=== PATIENT | female | born 1950 | race Caucasian/White ===

== ENCOUNTER 2017-10-07 12:00 | Inpatient (IN) | payer MEDICARE, BC ==
[2017-10-07 12:38] VITALS: BMI 21.4
[2017-10-21] MEDS ORDERED: CEFAZOLIN/Water 2 GM/20 ML SYRINGE ONE (06:19)
[2017-10-21] MEDS ORDERED: Tranexamic Acid 1,000 MG/100 ML BAG ONE ×2 (06:19→08:57)
[2017-10-21] MEDS ORDERED: Levofloxacin 500 mg/D5W 100 ml Premix Bag ONE (06:25)
[2017-10-21] MEDS ORDERED: Clindamycin/D5W 900 mg/50 ml Premix Bag ONE (06:25)
[2017-10-21] MEDS ORDERED: Fentanyl 100 MCG/2 ML VIAL ONE (06:30)
[2017-10-21] MEDS ORDERED: Midazolam HCl 2 mg/2 ml Vial ONE (06:30)
[2017-10-21] MEDS ORDERED: Bupivacaine 0.25% HCL 30 ML VIAL ONE (06:56)
[2017-10-21] MEDS ORDERED: Fentanyl 100 MCG/2 ML VIAL SLOW IVP PRN ×2 (06:57)
[2017-10-21] MEDS ORDERED: Acetaminophen 325 MG TAB PO PRN (06:57)
[2017-10-21] MEDS ORDERED: Promethazine HCl 25 MG/ML VIAL IM PRN ×3 (06:57→08:53)
[2017-10-21] MEDS ORDERED: traMADol HCl 50 MG TAB PO PRN ×2 (06:57→07:00)
[2017-10-21] MEDS ORDERED: HYDROcodone/Acetaminophen 10/325 mg Tablet PO PRN ×2 (06:57)
[2017-10-21] MEDS ORDERED: diphenhydrAMINE 25 MG CAP PO PRN (06:57)
[2017-10-21] MEDS ORDERED: Ondansetron HCl/PF 4 MG/2 ML Vial IVP PRN ×3 (06:57→08:53)
[2017-10-21] MEDS ORDERED: Zolpidem Tartrate 5 MG TAB PO PRN ×2 (06:57→07:00)
[2017-10-21] MEDS ORDERED: diphenhydrAMINE 50 MG/ML VIAL IVP PRN (07:00)
[2017-10-21] MEDS ORDERED: diphenhydrAMINE 50 MG/ML VIAL IM PRN (07:00)
[2017-10-21] MEDS ORDERED: Tranexamic Acid 1,000 MG in Sodium Chloride 0.9% 100 ML IVPB SCH (07:00)
[2017-10-21] MEDS ORDERED: Bupivacaine 0.25% 10 ML VIAL EPIDURAL PRN (07:00)
[2017-10-21] MEDS ORDERED: Naloxone HCl 0.4 mg/ml Vial IVP PRN (07:00)
[2017-10-21] MEDS ORDERED: Eucerin (Mineral Oil/Petrolatum,White) 30 gm Jar TOP PRN (07:00)
[2017-10-21] MEDS ORDERED: HYDROcodone/Acetaminophen 5/325 mg Tablet PO PRN ×2 (07:00)
[2017-10-21] MEDS ORDERED: Fentanyl/Bupivacaine 250 ML in Premix Bag 1 BAG EPIDURAL SCH (07:00)
[2017-10-21] MEDS ORDERED: Promethazine HCl 25 MG SUPP PR PRN (07:00)
[2017-10-21] MEDS ORDERED: Naloxone HCl 0.4 mg/ml Vial IV PRN (07:00)
[2017-10-21] MEDS ORDERED: Alendronate Sodium 70 mg Tablet PO SCH (07:00)
[2017-10-21] MEDS ORDERED: HYDROmorphone 2 MG/ML VIAL SLOW IVP PRN (08:53)
[2017-10-21] MEDS ORDERED: Promethazine HCl 25 MG/ML VIAL SLOW IVP PRN (08:53)
[2017-10-21] MEDS ORDERED: Fentanyl/Bupivacaine 250 ML EPIDURAL ONE (09:04)
--- NOTE | 2017-10-21 09:21 | OP ---
DATE OF PROCEDURE: 10/21/2017 PREOPERATIVE DIAGNOSIS: End-stage bicompartmental osteoarthritis, right hip. POSTOPERATIVE DIAGNOSIS: End-stage bicompartmental osteoarthritis, right hip. PROCEDURE: Press-Fit right total hip arthroplasty. SURGEON: Ron Wright M.D. AIRCRAFT PART ASSEMBLER: Ward Arias PA-C. ANESTHESIA: General via endotracheal tube augmented with indwelling epidural. COMPONENTS USED: [employer] Trident PSL press-fit cluster acetabular shell 46 mm diameter w ith a 0 degree polyethylene fixed bearing insert. Accolade press-fit size 3.5 hip stem and a Biolox ceramic femoral head 36 mm with a +2.5 neck length. ESTIMATED BLOOD LOSS: 200 mL. DRAINS: None. SPECIMENS: None. COMPLICATIONS: None. COUNTS: One 10 blade unaccounted for. Plain radiographs obtained postoperatively yielded a negative result but good implant, fixation and p ositioning, also x-rays were obtained of all drapes. INDICATIONS FOR SURGERY: Ines is a 66-year-old white female who has had progressive right-sided hip , groin, and thigh pain amplified with standing and walking for the last 5-7 years. She has failed c onservative management and elected to proceed with total hip arthroplasty to treat her pain. PROCEDURE IN DETAIL: After informed consent was obtained in the preoperative holding area, the patie nt was taken to the operative suite where general anesthesia was induced. The patient was then posit ioned in the lateral decubitus position. The hip was then prepped and draped in usual sterile fashio n. The patient received preoperative antibiotics. Prior to incision, time-out was called and all me mbers of the surgical team agreed upon site, surgeon, and patient. After this, a longitudinal incisi on was made directly over the trochanter, noted by palpation extending 2 fingerbreadths above and bel ow the trochanter. The deeper subcutaneous layer was undermined with Bovie electrocautery. The ilio tibial band was encountered and incised sharply and the plane below this was developed bluntly. A kala retractor was placed to hold this opened. The lateral aspect of the trochanter and the abduct or muscles were encountered and then reflected anteriorly off the trochanter using Bovie electrocaute ry. Once this was completed, the anterior capsule was then encountered and identified and copious ca psulotomy was carried out, exposing the femoral neck and head. Dislocation maneuver was then performe d and an in situ provisional neck cut was then made using the oscillating saw. Attention was then tu rned to acetabular preparation and sequential reaming was carried out up to the appropriate diameter and a trial was then malleted into place with good firm resistance and no pullout. The permanent walker tabular shell was then malleted squarely into place, as was the appropriate liner. Once completed, t he wound was copiously irrigated and attention was then turned to femoral preparation. Flexion and ex ternal rotation was performed of the exposed thigh and femoral elevators were then placed at the prox imal aspect of the wound. Canal finder was used to establish the length of the canal and sequential reaming was carried out, followed by broaching. Once the appropriate stability was established with the trial broaches with both flexion, extension and rotational stability, we did trial with neutral a nd 2 mm offset incremental necks. Once the appropriate size was decided upon, with good stability no zenaida with flexion, extension, internal and external rotation and shuck being negative, we removed the femoral trial broach and malletted into place the permanent prosthesis with good firm fit, which was also stable to rotation. Again, the hip felt very stable to flexion, extension, internal and externa l rotation. Leg lengths appeared near anatomic clinically and we were quite happy with prosthesis pl acement. Copious irrigation was then carried out through the entirety of the wound. Primary closure of the abductors was accomplished with interrupted #2 Vicryl [id number] stitches and the IT ban d was then closed with interrupted #2 Vicryl, oversewn with a #2 running barbed Quill stitch. Subcut aneous fascia was closed with running barbed Quill stitch and a subcuticular Monocryl barbed Quill st itch was used for skin closure and augmented with skin cement. A sterile dressing was applied. The p rocedure was terminated without any complication. All counts were correct. The patient was awakened in the operative suite and taken to the recovery room in stable condition.
--- NOTE | 2017-10-21 09:26 | RAD ---
RIGHT HIP ONE VIEW: History: Post op. FINDINGS: Satisfactory appearance right hip arthroplasty. No hardware complication: IMPRESSION: Satisfactory appearance right hip arthroplasty. POS: [facility]
--- NOTE | 2017-10-21 10:47 | RAD ---
RIGHT HIP TWO VIEWS: History: Right hip replacement. Evaluate for foreign body. FINDINGS: Right hip prosthesis is in place. Soft tissue gas is demonstrated. No other metallic foreign bodies are visible. POS: [facility]
[2017-10-21] MEDS: Sodium Chloride 0.9% 1,000 ML IV SCH ×3 (10:54→20:32)
[2017-10-21] MEDS: Senokot S 8.6-50 MG TAB PO SCH ×2 (10:55→20:30)
[2017-10-21] MEDS: Lisinopril 10 MG TAB PO SCH (10:55)
[2017-10-21] MEDS: Azelastine 137 MCG/Spray 30 ML NS SCH (10:55)
[2017-10-21] MEDS: Multivitamin W/ Minerals 1 TAB PO SCH (10:55)
[2017-10-21] MEDS: Ferrous Gluconate 324 MG TAB PO SCH ×2 (10:55→20:29)
[2017-10-21] MEDS: Calcium Citrate 950 MG TAB PO SCH ×3 (10:55→23:03)
[2017-10-21] MEDS ORDERED: Prevnar 13-Val Conj/PF 0.5 ML SYRINGE IM ONE (12:00)
[2017-10-21] MEDS ORDERED: Dexamethasone 20 MG/5 ML VIAL ONE (14:40)
[2017-10-21] MEDS ORDERED: Ketorolac Tromethamine 30 MG/ML VIAL ONE (14:40)
[2017-10-21] MEDS ORDERED: PHENYLEPHRINE-NS 100 MCG/ML 10 ML SYRINGE ONE (14:40)
[2017-10-21] MEDS ORDERED: Ondansetron HCl/PF 4 MG/2 ML Vial ONE (14:40)
[2017-10-21] MEDS ORDERED: ePHEDrine/0.9% NaCl/PF SYRINGE 50 mg/10 ml ONE (14:40)
[2017-10-21] MEDS ORDERED: Lidocaine 1% PF 5 ML VIAL ONE (14:40)
[2017-10-21] MEDS ORDERED: Propofol 200 MG/20 ML VIAL ONE (14:40)
--- NOTE | 2017-10-21 14:45 | HP ---
PRIMARY CARE PROVIDER: Dr. Nehemias Andrea. CONSULT: [facility] for postoperative care and medical management. The patient is status post right total hip replacement. She has had some mild chills, but no hard sh aking chills, no sweats, no fever since surgery. She has had no chest pain, shortness of breath or n ausea. PAST MEDICAL HISTORY: Hypertension, osteoarthritis, osteoporosis. CURRENT MEDICATIONS: Lisinopril 10 mg a day, alendronate 70 mg p.o. weekly, Flonase nasal spray p.r. n. azelastine nasal spray 2 sprays each nostril in the morning p.r.n. ALLERGIES: AMOXICILLIN, causes hives. PAST SURGICAL HISTORY: Appendectomy 18 months ago in this hospital, ureteroscopy for renal stones. FAMILY HISTORY: Father committed suicide. Mother at 82 of COPD. She was a smoker. She is an only child. SOCIAL HISTORY: , full code status. next of kin at bedside. Tobacco negative. [place], very occasional wine and beer. REVIEW OF SYSTEMS: GENERAL: No headaches, dizziness or fainting. EYES: No double vision, blurred vision, flashing lights. ENT: No ear pain or drainage. No nasal bleeding. No trouble swallowing. CARDIAC: No chest pain, orthopnea or paroxysmal nocturnal dyspnea. RESPIRATORY: No cough, wheezing or asthma. GASTROINTESTINAL: No nausea, vomiting, diarrhea or constipation. No abdominal pain. GENITOURINARY: No hematuria or dysuria. MUSCULOSKELETAL: She has some diffuse joint aches and pains. No hot swollen joints. She has no mus jessica pains. No swelling in arms or legs. NEUROLOGIC: No strokes, seizures or focal weakness. PSYCHIATRIC: No anxiety or depression issues. SKIN: No bruising, bleeding, or rash. HEME/LYMPH: No tender or swollen lymph nodes in axilla, inguinal or cervical area. PHYSICAL EXAMINATION: GENERAL: She is an alert, pleasant, cooperative lady. VITAL SIGNS: Temperature 96.8, pulse 83, respirations 16, O2 sat 97%, blood pressure 106/68. HEENT: Reveal pupils equal, round, and reactive to light. Extraocular movements are intact. Sclera e white. Tympanic membranes clear. Nose clear. Oral mucous membranes are wet. Dental hygiene is g ood. NECK: Supple without jugular venous distention, adenopathy or thyromegaly. CHEST: Clear to auscultation and percussion. HEART: Regular rate and rhythm. First and second heart sounds are clear. There are no appreciated murmurs or gallops. ABDOMEN: Soft, bowel sounds are normal. There is no hepatosplenomegaly, no mass, no rebound, no bru its. EXTREMITIES: Reveal no cyanosis, clubbing or edema. There is a bandage on the right hip. She has i ndwelling [place] catheter. PULSES: Carotid, radial, femoral, and dorsalis pedis pulses intact. SKIN: Warm and dry without bruises or rash. HEME/LYMPH: Reveals no tender or swollen lymph nodes in axilla, inguinal or cervical area. NEUROLOGICAL: Cranial nerves II-XII are intact. Moves all extremities. Sensation is intact. EKG: Regular sinus rhythm within normal limits, reviewed by me. Chest x-ray shows no cardiomegaly, CHF or infiltrate, reviewed by me. LABORATORY: Done on 10/14/2017. CBC within normal limits. INR 1.0. Basic metabolic profile normal except for a BUN of 22. Urine is clear. ADMITTING DIAGNOSES: 1. Postoperative status. 2. Hypertension. 3. Osteoporosis. 4. Osteoarthritis. PLAN: 1. Thank you for the consult. We will follow with you. 2. Continue selected home medicines.
[2017-10-21] MEDS: diphenhydrAMINE 25 MG CAP PO PRN ×2 (15:45→18:41)
[2017-10-21] MEDS ORDERED: Vancomycin HCl 1 GM in Premix Bag 1 BAG IVPB SCH (18:00)
[2017-10-21] MEDS: Fluticasone Propionate Nasal Spray 16 gm Bottle NASAL SCH (20:43)
[2017-10-21] MEDS: Ketorolac Tromethamine 30 MG/ML VIAL IVP PRN (23:09)
[2017-10-21] MEDS: traMADol HCl 50 MG TAB PO PRN (23:14)
[2017-10-22] MEDS: traMADol HCl 50 MG TAB PO PRN ×2 (04:42→15:14)
[2017-10-22] MEDS: Ketorolac Tromethamine 30 MG/ML VIAL IVP PRN (06:13)
[2017-10-22 06:24] LABS: Hemoglobin 10.4 g/dL (12.0-16.0); Mean Corpuscular HGB CONC 33.6 g/dL (32.0-36.0); Mean Corpuscular Hemoglobin 31.7 pg (27.0-31.0); Mean Corpuscular Volume 94.5 fl (81.0-99.0); Mean Platelet Volume 7.1 fL (7.4-10.4); Platelet Count 192 thou/uL (130-400); RBC Distribution Width 10.7 % (11.5-14.5); Red Blood Cell (RBC) Count 3.27 mill/uL (4.20-5.40); White Blood Cell (WBC) Count 6.8 thou/uL (4.8-10.8)
[2017-10-22] MEDS: Lisinopril 10 MG TAB PO SCH (09:43)
[2017-10-22] MEDS: Senokot S 8.6-50 MG TAB PO SCH ×2 (09:43→20:15)
[2017-10-22] MEDS: Ferrous Gluconate 324 MG TAB PO SCH ×2 (09:43→20:15)
[2017-10-22] MEDS: Multivitamin W/ Minerals 1 TAB PO SCH (09:43)
[2017-10-22] MEDS: Calcium Citrate 950 MG TAB PO SCH ×3 (09:44→20:15)
[2017-10-22] MEDS: Azelastine 137 MCG/Spray 30 ML NS SCH (09:44)
[2017-10-22] MEDS ORDERED: HYDROcodone/Acetaminophen 10/325 mg Tablet PO PRN (11:22)
[2017-10-22] MEDS: Sodium Chloride 0.9% 1,000 ML IV SCH ×2 (12:15→23:44)
[2017-10-22] MEDS: HYDROcodone/Acetaminophen 10/325 mg Tablet PO PRN ×2 (13:50→20:19)
--- NOTE | 2017-10-22 16:32 | PDOC.PN ---
- Subjective Encounter Start Date: 10/22/17 Encounter Start Time: 16:30 Subjective: alert, still having significant surgical site pain - Objective MAR Reviewed: Yes Vital Signs & Weight: Vital Signs (12 hours) Temp Pulse Resp BP Pulse Ox 10/22/17 16:00 98.3 F 87 12 111/72 100 10/22/17 13:29 97.4 F L 101 H 16 107/70 97 10/22/17 08:00 99.2 F 101 H 14 118/77 97 10/22/17 04:56 98.7 F 98 16 113/73 98 Weight Admit Weight 125 lb Weight 125 lb I&O: 10/21/17 10/22/17 10/23/17 06:59 06:59 06:59 Intake Total 2934 Output Total 1750 Balance 1184 Result Diagrams: 10/22/17 05:56 Phys Exam - Physical Examination Constitutional: NAD Neck: no JVD Respiratory: clear to auscultation bilateral Cardiovascular: RRR, no significant murmur Gastrointestinal: soft, non-tender, positive bowel sounds Musculoskeletal: no edema Dx/Plan (1) Post-op pain Code(s): G89.18 - OTHER ACUTE POSTPROCEDURAL PAIN Status: Acute (2) HTN (hypertension) Code(s): I10 - ESSENTIAL (PRIMARY) HYPERTENSION Status: Chronic (3) Osteoarthritis Code(s): M19.90 - UNSPECIFIED OSTEOARTHRITIS, UNSPECIFIED SITE Status: Chronic Qualifiers: Osteoarthritis location: unspecified site (4) Osteoporosis Code(s): M81.0 - AGE-RELATED OSTEOPOROSIS W/O CURRENT PATHOLOGICAL FRACTURE Status: Acute Qualifiers: Osteoporosis type: unspecified Presence of current pathological fracture: unspecified Qualified Code(s): M81.0 - Age-related osteoporosis without current pathological fracture - Plan adjusting anagesia -: OW doing well, cont home meds * .
[2017-10-22] MEDS: Fluticasone Propionate Nasal Spray 16 gm Bottle NASAL SCH (23:44)
[2017-10-23] MEDS: HYDROcodone/Acetaminophen 10/325 mg Tablet PO PRN ×2 (05:25→10:12)
[2017-10-23] MEDS: Ketorolac Tromethamine 30 MG/ML VIAL IVP PRN (05:57)
[2017-10-23 06:09] LABS: Hemoglobin 10.9 g/dL (12.0-16.0); Mean Corpuscular HGB CONC 32.4 g/dL (32.0-36.0); Mean Corpuscular Hemoglobin 31.1 pg (27.0-31.0); Mean Corpuscular Volume 95.8 fl (81.0-99.0); Mean Platelet Volume 7.3 fL (7.4-10.4); Platelet Count 207 thou/uL (130-400); White Blood Cell (WBC) Count 6.9 thou/uL (4.8-10.8)
[2017-10-23] MEDS: Multivitamin W/ Minerals 1 TAB PO SCH (10:13)
[2017-10-23] MEDS: Senokot S 8.6-50 MG TAB PO SCH (10:13)
[2017-10-23] MEDS: Ferrous Gluconate 324 MG TAB PO SCH (10:14)
[2017-10-23] MEDS: Calcium Citrate 950 MG TAB PO SCH (10:14)
[2017-10-23] MEDS: Lisinopril 10 MG TAB PO SCH (10:14)
[2017-10-23] MEDS: Azelastine 137 MCG/Spray 30 ML NS SCH (12:06)
[2017-10-23 14:06] VITALS: BP 106/58; TEMP 97.6
--- NOTE | 2017-10-24 14:27 | DIS ---
DATE OF ADMISSION: 10/21/2017 DATE OF DISCHARGE: 10/23/2017 DISCHARGE DISPOSITION: To home. ADMISSION DIAGNOSIS: End-stage bicompartmental osteoarthritis, right hip. DISCHARGE DIAGNOSIS: End-stage bicompartmental osteoarthritis, right hip. OPERATIVE PROCEDURE: Right total hip arthroplasty. CONSULTANTS: [facility] for acute postop pain management and [facility] fo r medical management erythema. BRIEF CLINICAL HISTORY: The patient was admitted to [facility] and underwent the above elective procedure on the date of admission without intra, macy, or postoperative complicat ion. The hospital course was unremarkable. At the time of discharge, the patient is afebrile, ambul atory without assistance utilizing a rolling walker in a full weightbearing fashion, tolerating a reg ular diet, and voiding without difficulty. The patient's incision is clean and closed without any er ythema. DISCHARGE MEDICATIONS: Please see medication reconciliation form. We will be happy to see the patient on an as needed basis between now and her next scheduled appointm ent. CONDITION ON DISCHARGE: Stable. PROGNOSIS: Good.
== END 2017-10-23 13:55 | disposition home or self-care (01) | DRG 470 ==
LOC: SJJU 10-21 05:24
PROVIDERS: ADMIT Orthopaedic Surgery; ATTEND Orthopaedic Surgery
PROC: 0SR904A Replacement of Right Hip Joint with Ceramic on Polyethylene Synthetic Substitute, Uncemented, Open Approach (ICD-10-PCS; principal; 2017-10-21)
PROC: 3E0T3BZ Introduction of Anesthetic Agent into Peripheral Nerves and Plexi, Percutaneous Approach (ICD-10-PCS; 2017-10-21)
DX: M16.11 Unilateral primary osteoarthritis, right hip (principal); G89.18 Other acute postprocedural pain; I10 Essential (primary) hypertension; M81.0 Age-related osteoporosis without current pathological fracture; Z88.1 Allergy status to other antibiotic agents
CPT/HCPCS: 36415; 85027; G8978-GP-CK; G8979-GP-CJ; G8987-GO-CJ; G8988-GO-CI; J1100; J1885; J1956; J2001; J2250; J2405; J2704; J3010; J3370; J3490; S0020

== ENCOUNTER 2017-10-14 08:17 | Outpatient (CLI) | payer MEDICARE, BC ==
[2017-10-14 08:54] LABS: #Basophils 0.1 thou/uL (0.0-0.2); #Eosinphils 0.2 thou/uL (0.0-0.7); #Monocytes 0.6 thou/uL (0.11-0.59); #Neutrophils 2.8 thou/uL (1.40-6.50); %Basophils 1.4 % (0.0-1.0); %Eosinophils 4.1 % (0.0-10.0); %Lymphocytes 35.4 % (21.0-51.0); %Monocytes 9.9 % (0.0-10.0); %Neutrophils 49.4 % (42.0-75.0); Hemoglobin 15.1 g/dL (12.0-16.0); Mean Corpuscular HGB CONC 31.9 g/dL (32.0-36.0); Mean Corpuscular Hemoglobin 30.2 pg (27.0-31.0); Mean Corpuscular Volume 94.5 fl (81.0-99.0); Mean Platelet Volume 7.2 fL (7.4-10.4); Platelet Count 293 thou/uL (130-400); RBC Distribution Width 10.6 % (11.5-14.5); White Blood Cell (WBC) Count 5.8 thou/uL (4.8-10.8)
[2017-10-14 09:02] LABS: PTT 31.3 SEC (22.9-36.1); Prothrombin Time 12.8 SEC (12.0-14.7)
[2017-10-14 09:05] LABS: Bilirubin Negative (Negative); Blood, Urine Negative (Negative); Clarity CLEAR (Clear); Glucose, Urine (Dipstick) Negative (Negative); Leukocyte Negative (Negative); Nitrite Negative (Negative); Protein, Urine (Dipstick) Negative (Neg-Trace); Specific Gravity, Urine 1.014 (1.002-1.036); Urobilinogen 0.2 mg/dL (0.2-1.0); pH, Urine 6.5 (5.0-9.0)
[2017-10-14 09:07] LABS: Bacteria/HPF None Seen HPF (None Seen); Hyaline Casts/LPF 0-3 HYALINE CAST LPF (0-3 Hyaline); Pathc Cast-AUWi Flag 0.27 (0-2.49); RBC/HPF 0-3 HPF (0-3); Squamous Epithelial None Seen HPF (0-3); WBC/HPF 0-3 HPF (0-3)
[2017-10-14 09:12] LABS: Anion Gap 13 mmol/L (10-20); BUN (Urea Nitrogen) 22 mg/dL (9.8-20.1); Calc. Creatinine Clearance 0 mL/min (70-130); Calcium 10.3 mg/dL (7.8-10.44); Carbon Dioxide 27 mmol/L (23-31); Chloride 100 mmol/L (98-107); Estimated GFR-MDRD 61; Glucose 84 mg/dL (80-115); Potassium 4.3 mmol/L (3.5-5.1); Sodium 136 mmol/L (136-145)
--- NOTE | 2017-10-14 09:47 | RAD ---
TWO VIEWS CHEST: Date: 10-14-17 Comparison: None. History: Pre-operative patient. FINDINGS: No pneumothorax, pleural fluid, focal consolidation or alveolar edema. There is a mild degree of roto scoliosis at the upper lumbar spine, apex to the right. IMPRESSION: No acute findings. POS: [facility]
--- NOTE | 2017-10-14 23:42 | EKG ---
Test Reason : Blood Pressure : / mmHG Vent. Rate : 079 BPM Atrial Rate : 079 BPM P-R Int : 162 ms QRS Dur : 072 ms QT Int : 366 ms P-R-T Axes : 076 072 064 degrees QTc Int : 419 ms Normal sinus rhythm Normal ECG When compared with ECG of 01-AUG-2016 20:46, No significant change was found Confirmed by Sherrell ORR ([id number]) on 10/14/2017 11:42:13 PM Referred By: CLARENCE Confirmed By:Sherrell ORR
== END 2017-10-14 08:18 | disposition home or self-care (01) ==
LOC: LABBT 08:17
PROVIDERS: ATTEND Orthopaedic Surgery
DX: Z01.812 Encounter for preprocedural laboratory examination (principal); Z01.810 Encounter for preprocedural cardiovascular examination; Z01.818 Encounter for other preprocedural examination; M16.11 Unilateral primary osteoarthritis, right hip; Z88.1 Allergy status to other antibiotic agents
CPT/HCPCS: 71046; 80048; 81001; 85025; 85610; 85730; 86850; 86900; 86901; 87081; 93005; 93010

== ENCOUNTER 2018-11-18 10:58 | Emergency (ER) | payer MEDICARE, BC ==
[2018-11-18] MEDS ORDERED: Promethazine HCl 25 MG/ML VIAL ONE (11:12)
[2018-11-18] MEDS ORDERED: Meclizine HCl 25 MG TAB ONE (11:31)
[2018-11-18 12:08] LABS: #Lymphocytes 0.9 thou/uL (1.20-3.40); #Monocytes 0.4 thou/uL (0.11-0.59); #Neutrophils 3.7 thou/uL (1.40-6.50); %Basophils 0.7 % (0.0-1.0); %Eosinophils 0.9 % (0.0-10.0); %Lymphocytes 18.5 % (21.0-51.0); %Monocytes 7.1 % (0.0-10.0); %Neutrophils 72.8 % (42.0-75.0); Hemoglobin 14.3 g/dL (12.0-16.0); Mean Corpuscular Hemoglobin 32.1 pg (27.0-31.0); Mean Corpuscular Volume 97.2 fL (78.0-98.0); Mean Platelet Volume 7.4 fL (7.4-10.4); Platelet Count 231 thou/uL (130-400); RBC Distribution Width 10.6 % (11.5-14.5); Red Blood Cell (RBC) Count 4.47 mill/uL (4.20-5.40); White Blood Cell (WBC) Count 5.1 thou/uL (4.8-10.8)
[2018-11-18] MEDS ORDERED: Metoclopramide HCl 10 MG/2 ML VIAL ONE (12:12)
[2018-11-18] MEDS ORDERED: diphenhydrAMINE 50 MG/ML VIAL ONE (12:12)
[2018-11-18 12:33] LABS: ALT (SGPT) 23 U/L (8-55); AST (SGOT) 24 U/L (5-34); Albumin 3.5 g/dL (3.4-4.8); Alkaline Phosphatase 50 U/L (40-150); Anion Gap 8 mmol/L (10-20); BUN (Urea Nitrogen) 17 mg/dL (9.8-20.1); Bilirubin, Total 0.4 mg/dL (0.2-1.2); Calc. Creatinine Clearance 0 mL/min (70-130); Calcium 8.9 mg/dL (7.8-10.44); Carbon Dioxide 27 mmol/L (23-31); Chloride 106 mmol/L (98-107); Estimated GFR-MDRD 71; Globulin 2.2 g/dL (2.4-3.5); Glucose 108 mg/dL (80-115); Potassium 4.2 mmol/L (3.5-5.1); Protein, Total 5.7 g/dL (6.0-8.3); Sodium 137 mmol/L (136-145)
--- NOTE | 2018-11-18 12:58 | CT ---
NONCONTRAST CT HEAD: Date: 11-18-18 History: Dizziness, nausea, vomiting. Comparison: None available. FINDINGS: There is no evidence of a hemorrhage, acute infarction, mass effect, or midline shift. Mild cerebral volume loss is present. Minimal mucosal thickening is seen ethmoidal air cells. Mastoid air cells are opacified on the right. IMPRESSION: 1. No acute intracranial abnormalities demonstrated. 2. Mild cerebral volume loss. 3. Right mastoid effusion with opacification of the right sided mastoid air cells. There is no opacif ication of the middle ear cavity. POS: [facility]
== END 2018-11-18 13:25 | disposition home or self-care (01) ==
LOC: ERS 10:58
DX: J32.9 Chronic sinusitis, unspecified (principal); H81.399 Other peripheral vertigo, unspecified ear
CPT/HCPCS: 36415; 70450; 80053; 85025; 93005; 96365; 96367; 96375; J1200; J2550; J2765

== ENCOUNTER 2018-11-24 08:28 | Emergency (ER) | payer MEDICARE, BC ==
[2018-11-24] MEDS ORDERED: Diazepam 5 MG TAB ONE (09:08)
[2018-11-24 09:35] LABS: #Basophils 0.1 thou/uL (0.0-0.2); #Eosinphils 0.1 thou/uL (0.0-0.7); #Monocytes 0.7 thou/uL (0.11-0.59); #Neutrophils 4.1 thou/uL (1.40-6.50); %Basophils 1.1 % (0.0-1.0); %Eosinophils 1.7 % (0.0-10.0); %Lymphocytes 28.4 % (21.0-51.0); %Monocytes 9.6 % (0.0-10.0); %Neutrophils 59.2 % (42.0-75.0); Hemoglobin 15.9 g/dL (12.0-16.0); Mean Corpuscular Hemoglobin 30.8 pg (27.0-31.0); Mean Platelet Volume 7.3 fL (7.4-10.4); Platelet Count 326 thou/uL (130-400); RBC Distribution Width 10.9 % (11.5-14.5); Red Blood Cell (RBC) Count 5.16 mill/uL (4.20-5.40)
[2018-11-24 09:53] LABS: ALT (SGPT) 26 U/L (8-55); AST (SGOT) 23 U/L (5-34); Albumin 4.2 g/dL (3.4-4.8); Alkaline Phosphatase 63 U/L (40-150); Anion Gap 11 mmol/L (10-20); BUN (Urea Nitrogen) 15 mg/dL (9.8-20.1); Bilirubin, Total 0.7 mg/dL (0.2-1.2); Calc. Creatinine Clearance 0 mL/min (70-130); Calcium 10.5 mg/dL (7.8-10.44); Carbon Dioxide 30 mmol/L (23-31); Chloride 104 mmol/L (98-107); Estimated GFR-MDRD 64; Globulin 2.4 g/dL (2.4-3.5); Glucose 90 mg/dL (80-115); Potassium 4.2 mmol/L (3.5-5.1); Protein, Total 6.6 g/dL (6.0-8.3); Sodium 141 mmol/L (136-145)
[2018-11-24 10:25] LABS: Bilirubin Negative (Negative); Blood, Urine Negative (Negative); Clarity CLEAR (Clear); Glucose, Urine (Dipstick) Negative (Negative); Leukocyte Negative (Negative); Nitrite Negative (Negative); Protein, Urine (Dipstick) Negative (Neg-Trace); Specific Gravity, Urine 1.004 (1.002-1.036); Urobilinogen 0.2 mg/dL (0.2-1.0); pH, Urine 6.5 (5.0-9.0)
== END 2018-11-24 12:35 | disposition home or self-care (01) ==
LOC: ERS 08:28
DX: H81.11 Benign paroxysmal vertigo, right ear (principal); I10 Essential (primary) hypertension; M19.90 Unspecified osteoarthritis, unspecified site; Z79.891 Long term (current) use of opiate analgesic; Z79.899 Other long term (current) drug therapy
CPT/HCPCS: 80053; 81003; 84443; 84484; 85025; 93005; 96360; 96361

== ENCOUNTER 2019-02-11 10:22 | Outpatient (CLI) | payer MEDICARE, BC | END 2019-02-11 10:23 | disposition home or self-care (01) | LOC: CTENTCT 10:22 | PROVIDERS: ATTEND Otolaryngology Plastic Surgery within the Head & Neck | DX: J32.9 Chronic sinusitis, unspecified (principal) | CPT/HCPCS: 70486 ==

== ENCOUNTER 2019-02-16 14:30 | Outpatient (CLI) | payer MEDICARE, BC ==
[~2019-02-16 14:30] MED LIST: Gadobenate Dimeglumine 529 MG/1 ML (20ML VIAL) ONE
--- NOTE | 2019-02-16 16:11 | MRI ---
Brain MRI with and without contrast: 02/16/2019 COMPARISON: None HISTORY: Conductive hearing loss, chronic sinusitis TECHNIQUE: Multiplanar multisequence MR imaging of the brain obtained with and without contrast using the internal auditory canal protocol FINDINGS: The diffusion weighted imaging demonstrates no evidence for acute infarction. There is no midline shift, mass effect, or ventricular enlargement seen. There is minimal mucosal thickening involving the ethmoid air cells bilaterally. Arterial flow voids at the axial level of the skull base appear grossly unremarkable on the T2-weight ed imaging. Thin section T2 weighted imaging through the skull base demonstrates normal signal intensity in the r egion of the bilateral cerebellopontine angle, IAC, cochlea, vestibule, and semicircular canals. Regional bone marrow signal intensity appears within normal limits. The postcontrast imaging demonstrates no abnormal enhancement. IMPRESSION: Unremarkable brain MRI using the internal auditory canal protocol.
== END 2019-02-16 14:31 | disposition home or self-care (01) ==
LOC: SCSMRI 14:30
PROVIDERS: ATTEND Otolaryngology Otology & Neurotology
DX: D33.3 Benign neoplasm of cranial nerves (principal); J32.9 Chronic sinusitis, unspecified; H90.0 Conductive hearing loss, bilateral
CPT/HCPCS: 70553; 82565; A9577

== ENCOUNTER 2020-12-31 14:13 | Observation (INO) | payer MEDICARE, BC ==
[2020-12-31] MEDS ORDERED: Morphine 4 MG/ML VIAL ONE ×2 (15:14→23:02)
[2020-12-31] MEDS ORDERED: Ondansetron PF 4 MG/2 ML Vial ONE ×2 (15:14→23:02)
[2020-12-31] MEDS ORDERED: Diazepam 5 MG TAB ONE (22:34)
[2021-01-01] MEDS ORDERED: Ondansetron PF 4 MG/2 ML Vial IVP PRN (00:33)
[2021-01-01] MEDS ORDERED: hydrALAZINE 20 MG/ML VIAL SLOW IVP PRN (00:33)
[2021-01-01] MEDS ORDERED: Ondansetron ODT 4 MG TAB PO PRN (00:33)
[2021-01-01] MEDS ORDERED: Cyclobenzaprine 10 MG TAB PO PRN (00:33)
[2021-01-01] MEDS ORDERED: traMADol HCl 50 MG TAB PO PRN (00:33)
[2021-01-01] MEDS ORDERED: Dextrose 5% in Water 1,000 ML IV PRN (00:33)
[2021-01-01] MEDS ORDERED: Dextrose 50% Abboject 50 ML SYRINGE SLOW IVP PRN (00:33)
[2021-01-01 00:46] VITALS: BMI 23.1
[2021-01-01] MEDS ORDERED: Sodium Chloride 0.9% 1,000 ML IV SCH (01:00)
[2021-01-01] MEDS: Acetaminophen 325 MG TAB PO SCH ×3 (05:59→18:24)
[2021-01-01] MEDS: Ibuprofen 200 MG TAB PO SCH ×2 (06:00→14:35)
[2021-01-01] MEDS ORDERED: Alendronate Sodium 70 mg Tablet PO SCH (06:00)
[2021-01-01 06:14] LABS: #Lymphocytes 1.1 thou/uL (1.20-3.40); #Monocytes 0.8 thou/uL (0.11-0.59); #Neutrophils 5.9 thou/uL (1.40-6.50); %Basophils 0.2 % (0.0-1.0); %Eosinophils 0.2 % (0.0-10.0); %Lymphocytes 13.6 % (21.0-51.0); %Neutrophils 75.9 % (42.0-75.0); Hemoglobin 12.8 g/dL (12.0-16.0); Mean Corpuscular Hemoglobin 31.6 pg (27.0-31.0); Mean Corpuscular Volume 95.6 fL (78.0-98.0); Mean Platelet Volume 7.1 fL (7.4-10.4); Platelet Count 236 thou/uL (130-400); RBC Distribution Width 11.2 % (11.5-14.5); Red Blood Cell (RBC) Count 4.06 mill/uL (4.20-5.40); White Blood Cell (WBC) Count 7.8 thou/uL (4.8-10.8)
[2021-01-01 06:35] LABS: Anion Gap 13 mmol/L (10-20); BUN (Urea Nitrogen) 15 mg/dL (9.8-20.1); Calc. Creatinine Clearance 60 mL/min (70-130); Calcium 8.9 mg/dL (7.8-10.44); Carbon Dioxide 25 mmol/L (23-31); Chloride 99 mmol/L (98-107); Glucose 130 mg/dL (80-115); Sodium 133 mmol/L (136-145)
[2021-01-01] MEDS ORDERED: Promethazine 25 MG TAB PO PRN (06:39)
[2021-01-01] MEDS ORDERED: Aspirin Chewable 81 MG TAB PO SCH (09:00)
[2021-01-01] MEDS ORDERED: Lisinopril 10 MG TAB PO SCH (09:00)
[2021-01-01] MEDS: traMADol HCl 50 MG TAB PO PRN ×2 (09:27→18:22)
[2021-01-01 16:31] VITALS: BP 120/71; TEMP 97.6
== END 2021-01-01 20:05 ==
LOC: ERS 14:13 → SURG B 22:50
PROVIDERS: ADMIT Surgery; ATTEND Surgery
DX: S32.110A Nondisplaced Zone I fracture of sacrum, initial encounter for closed fracture (principal); S32.592A Other specified fracture of left pubis, initial encounter for closed fracture; S92.322A Displaced fracture of second metatarsal bone, left foot, initial encounter for closed fracture; S62.657A Nondisplaced fracture of middle phalanx of left little finger, initial encounter for closed fracture; H81.09 Meniere's disease, unspecified ear; I10 Essential (primary) hypertension; M15.4 Erosive (osteo)arthritis; Z79.82 Long term (current) use of aspirin; Z79.83 Long term (current) use of bisphosphonates; Z79.899 Other long term (current) drug therapy; Z88.0 Allergy status to penicillin; Z96.641 Presence of right artificial hip joint; W01.0XXA Fall on same level from slipping, tripping and stumbling without subsequent striking against object, initial encounter
CPT/HCPCS: 70450; 72170; 72192; 73130; 73502; 73610; 73630; 80048; 85025; 96374; 96375; 96376; 97116; 97139 ×3; 97530; 99285; G0378; 36415; J2270; J2405; Q0169

== ENCOUNTER 2021-05-07 09:17 | Outpatient (CLI) | payer MEDICARE, BC | END 2021-05-07 09:18 | disposition home or self-care (01) | LOC: BICMAMMO 09:17 | PROVIDERS: ATTEND Family Medicine | DX: Z13.820 Encounter for screening for osteoporosis (principal); N95.9 Unspecified menopausal and perimenopausal disorder; M81.0 Age-related osteoporosis without current pathological fracture | CPT/HCPCS: 77080 ==

== ENCOUNTER 2022-05-21 08:58 | Outpatient (CLI) | payer MEDICARE, BC | END 2022-05-21 08:59 | disposition home or self-care (01) | LOC: BICMAMMO 08:58 | PROVIDERS: ATTEND Family Medicine | DX: M80.00XG Age-related osteoporosis with current pathological fracture, unspecified site, subsequent encounter for fracture with delayed healing (principal); M16.11 Unilateral primary osteoarthritis, right hip; M85.88 Other specified disorders of bone density and structure, other site; Z96.641 Presence of right artificial hip joint | CPT/HCPCS: 77080 ==

== ENCOUNTER 2022-07-15 08:04 | Outpatient (CLI) | payer MEDICARE, BC | END 2022-07-15 08:05 | disposition home or self-care (01) | LOC: BICULT 08:04 | PROVIDERS: ATTEND Family Medicine | DX: R10.11 Right upper quadrant pain (principal) | CPT/HCPCS: 76705 ==

== ENCOUNTER 2022-08-01 10:04 | Outpatient (CLI) | payer MEDICARE, BC | END 2022-08-01 10:05 | disposition home or self-care (01) | LOC: BICRAD 10:04 | PROVIDERS: ATTEND Family Medicine | DX: J45.40 Moderate persistent asthma, uncomplicated (principal) | CPT/HCPCS: 71046 ==

== ENCOUNTER 2022-12-17 10:01 | Outpatient (CLI) | payer MEDICARE, BC ==
[2022-12-17] MEDS ORDERED: Magnevist 469MG/ML 20 ML VIAL ONE (10:25)
== END 2022-12-17 10:02 | disposition home or self-care (01) ==
LOC: MRI 10:01
PROVIDERS: ATTEND Physician Assistant Medical
DX: R74.8 Abnormal levels of other serum enzymes (principal)
CPT/HCPCS: 74183

== ENCOUNTER 2023-12-12 09:44 | Outpatient (CLI) | payer MEDICARE | END 2023-12-12 09:45 | disposition home or self-care (01) | LOC: BICMAMMO 09:44 | PROVIDERS: ATTEND Family Medicine | DX: M81.0 Age-related osteoporosis without current pathological fracture (principal); M85.88 Other specified disorders of bone density and structure, other site | CPT/HCPCS: 77080 ==

== ENCOUNTER 2025-08-23 13:42 | Outpatient (CLI) | payer MEDICARE | END 2025-08-23 13:43 | disposition home or self-care (01) | LOC: SCSMRI 13:42 | PROVIDERS: ATTEND Otolaryngology Plastic Surgery within the Head & Neck | DX: H81.01 Meniere's disease, right ear (principal); H90.3 Sensorineural hearing loss, bilateral | CPT/HCPCS: 70553; 76376 ==